=== PATIENT | male | born 1995 | race Caucasian/White ===

== ENCOUNTER 2017-04-12 14:59 | Emergency (ER) | payer OTHER ==
[~2017-04-12] VITALS: Ht 170.2 cm; Wt 65.9 kg
[2017-04-12 15:01] VITALS: BP 144/84
--- NOTE | 2017-04-15 15:02 | REP ---
Clinical: Right lower extremity pain and swelling. Technique: Real time mcallister scale and color Doppler evaluation using linear high frequency transducer. Findings: Ultrasound examination of the right lower extremity deep venous structures from the common femoral vein to the popliteal vein demonstrates normal compressibility, flow, and wave patterns and response to respiration and augmentation. There is no evidence for deep venous thrombosis. At the site of maximal erythema and tenderness overlying the calf a thrombosed superficial vein is identified suggesting thrombophlebitis. Impression: 1. No evidence for deep venous thrombosis. 2. Thrombophlebitis. Signed by Altaf Weathers MD 04/15/2017 02:55 P
== END 2017-04-12 16:45 | disposition home or self-care (01) ==
LOC: M ED 14:59
DX: I80.291 Phlebitis and thrombophlebitis of other deep vessels of right lower extremity (principal)

== ENCOUNTER 2018-12-25 07:24 | Emergency (ER) | payer OTHER ==
[~2018-12-25] VITALS: Ht 170.2 cm; Wt 66.4 kg
--- NOTE | 2018-12-25 09:12 | REP ---
Right lower extremity deep vein duplex ultrasound: The patient has a history of prior right lower extremity deep vein thrombus. The patient currently complains of right growing pain. The deep veins demonstrate normal compression, normal Doppler color flow and normal Doppler waveforms with respiration and augmentation from the popliteal vein to the common femoral vein. Impression: There is no right lower extremity deep vein thrombus. Electronically Signed by Anderson Reynoso MD 12/25/2018 09:04 A
[2018-12-25] MEDS ORDERED: CLOTCRE3 TOP (10:20)
[2018-12-25 10:29] VITALS: BP 126/2
== END 2018-12-25 10:30 | disposition home or self-care (01) ==
LOC: M ED 07:24
DX: N48.1 Balanitis (principal)